=== PATIENT | female | born 1995 | race Caucasian/White ===

== ENCOUNTER → 2018-05-25 | Outpatient (CLI) | payer OTHER ==
[~2018-05-25] MED LIST: LEVAQUIN 750MG750 MG PO; NO HOME MEDICATIONS
== END ==
LOC: COL.RAD 13:10
DX: S69.91XA Unspecified injury of right wrist, hand and finger(s), initial encounter (principal); W10.9XXA Fall (on) (from) unspecified stairs and steps, initial encounter